=== PATIENT | female | born 1970 | race American Indian/Alaskan Native ===

== ENCOUNTER 2020-06-30 15:27 | Emergency (ER) | payer SELFPAY ==
[2020-06-30 15:35] VITALS: BP 199/107
[2020-06-30] MEDS ORDERED: methylPREDNISolone Sod Succinate 125 MG/2 ML INJ IV ONE (16:11)
--- NOTE | 2020-06-30 17:36 | Emergency Department Report ---
ED Asthma HPI - General Chief Complaint: Adult Asthma Stated Complaint: ASTHMA Time Seen by Provider: 06/30/20 16:07 Source: patient Mode of arrival: Ambulatory Limitations: No Limitations - History of Present Illness Initial Comments: Patient reports asthma attack started 3 days ago she is using her nebulizer every 4 hours for the last 3 days with no improvement. She denies fever chest pain nausea vomiting MD Complaint: "asthma attack" Onset/Timin -: days(s) (3) Asthma History: adult onset, history of prior ED visit Severity: moderate Context: none known Associated Symptoms: other (wheezing). denies: fever, chest pain, hemoptysis, leg edema, syncope Treatments Prior to Arrival: inhaled bronchodilator - Related Data Current Asthma Therapy: inhaled bronchodilator Previous Rx's Medication Instructions Recorded Last Taken Type predniSONE [Deltasone] 40 mg PO DAILY 5 Days #10 tablet 06/30/20 Unknown Rx Allergies Allergy/AdvReac Type Severity Reaction Status Date / Time Penicillins Allergy Unknown Verified 06/30/20 15:34 ED Review of Systems ROS: Stated complaint: ASTHMA Other details as noted in HPI Comment: All other systems reviewed and negative Constitutional: no symptoms reported. denies: fever, malaise Eyes: denies: eye pain, eye discharge, vision change Respiratory: no symptoms reported, wheezing Cardiovascular: denies: chest pain, palpitations, dyspnea on exertion Endocrine: no symptoms reported. denies: excessive sweating Gastrointestinal: denies: abdominal pain, nausea, diarrhea, constipation Musculoskeletal: denies: back pain Skin: denies: rash Neurological: denies: headache Psychiatric: denies: anxiety ED Past Medical Hx - Past Medical History Previous Medical History?: Yes Hx Asthma: Yes - Surgical History Past Surgical History?: No - Social History Smoking Status: Never Smoker - Medications Home Medications: Home Medications Medication Instructions Recorded Confirmed Last Taken Type predniSONE [Deltasone] 40 mg PO DAILY 5 Days #10 tablet 06/30/20 Unknown Rx ED Physical Exam - General Limitations: No Limitations General appearance: alert, in no apparent distress - Head Head exam: Present: atraumatic - Eye Eye exam: Present: normal appearance - ENT ENT exam: Present: normal exam, normal orophraynx, mucous membranes moist, TM's normal bilaterally - Neck Neck exam: Present: normal inspection. Absent: lymphadenopathy - Respiratory Respiratory exam: Present: wheezes. Absent: respiratory distress, accessory muscle use - Cardiovascular Cardiovascular Exam: Present: regular rate, normal heart sounds - Extremities Exam Extremities exam: Present: normal inspection - Neurological Exam Neurological exam: Present: alert, oriented X3 - Psychiatric Psychiatric exam: Present: normal affect - Skin Skin exam: Present: warm, dry, intact ED Course Vital Signs 06/30/20 15:34 Temperature 98.1 F Pulse Rate 79 Respiratory 18 Rate Blood Pressure 199/107 O2 Sat by Pulse 95 Oximetry - Reevaluation(s) Reevaluation #1: 06/30/20 17:38 Lungs reassessed. Patient reports improvement in breathing wheezing is mostly gone patient in no distress and states she is ready to go ED Medical Decision Making - Medical Decision Making 50-year-old female with a history of asthma. Last 3 days she has been using her home nebulizer with no improvement she denies fever chills chest pain I ordered a chest x-ray but patient refused states she does not need it she only wants that steroids and treatment. After Solu-Medrol 125 mg IV and DuoNeb x2 patient condition improved her wheezing went away and she stated she is feeling much better and ready to go home. I discussed with patient her elevated blood pressure states that because she has been having with a history problem with her asthma her blood pressure is up she denies any headache any chest pain any shortness of breath I encourage patient to continue taking all her blood pressure medicine to recheck her blood pressure at home and follow-up with her primary care doctor or return to this emergency room if she develops any severe headache chest pain weakness shortness of breath Critical Care Time: No Critical care attestation.: If time is entered above; I have spent that time in minutes in the direct care of this critically ill patient, excluding procedure time. ED Disposition Clinical Impression: Asthma attack Qualifiers: Asthma severity: moderate Asthma persistence: unspecified Qualified Code(s): J45.901 - Unspecified asthma with (acute) exacerbation Disposition: DC-01 TO HOME OR SELFCARE Is pt being admited?: No Does the pt Need Aspirin: No Condition: Stable Instructions: Asthma, Adult, Asthma Attack Prevention, Adult Additional Instructions: Contusion continue with albuterol nebulizer treatment every 4 knee hours as needed. Take prednisone 40 mg daily x5 days. Follow-up with primary care doctor in 3 to 5 days or return to the emergency room if you develop difficulty breathing fever or uncontrolled cough. Prescriptions: predniSONE [Deltasone] 40 mg PO DAILY 5 Days #10 tablet Referrals: PRIMARY CARE, [Primary Care Provider] - 3-5 Days Time of Disposition: 17:36
[2020-06-30] MEDS ORDERED: IPRATROPIUM/ALBUTEROL SULFATE 3 ML AMPUL.NEB IH SCH (20:00)
== END 2020-06-30 18:03 | disposition home or self-care (01) ==
LOC: ED 15:27
DX: J45.901 Unspecified asthma with (acute) exacerbation (principal); Z88.0 Allergy status to penicillin
CPT/HCPCS: 94644; 96374; 99282; J2930; 94640

== ENCOUNTER 2020-07-23 17:38 | Observation (INO) | payer OTHER ==
[2020-07-23] MEDS ORDERED: MAGNESIUM SULFATE 2 GM/50 ML BAG IV ONE (18:08)
[2020-07-23] MEDS ORDERED: dexAMETHasone 20 MG/5 ML VIAL IV ONE (18:08)
[2020-07-23] MEDS ORDERED: IPRATROPIUM 0.02% NEBU 2.5 ML IH ONE ×2 (18:08→21:18)
[2020-07-23] MEDS ORDERED: ALBUTEROL 2.5 MG/3 ML NEBU IH ONE ×2 (18:08→21:18)
--- NOTE | 2020-07-23 18:09 | Emergency Department Report ---
ED Asthma HPI - General Chief Complaint: Adult Asthma Stated Complaint: ASTHMA, WHEEZING, COUGH Time Seen by Provider: 07/23/20 18:08 Source: patient Mode of arrival: Ambulatory Limitations: No Limitations - History of Present Illness Initial Comments: Patient is a 50-year-old female presents emergency room with complaints of an asthma exacerbation that has been ongoing for 3 weeks but worse today. She was evaluated in the emergency department and given steroids IM and prednisone by mouth on which she states improved her symptoms some but she has continued to have symptoms. She has associated shortness of breath, wheezing, chest tightness, cough with mucus production. She states that she has had intermittent fevers. She denies any vomiting, diarrhea, sore throat, ear pain, abdominal pain. She has an allergy to penicillin. She states that she is using her neb treatments at home every 4 hours without much relief. - Related Data Previous Rx's Medication Instructions Recorded Last Taken Type predniSONE [Deltasone] 40 mg PO DAILY 5 Days #10 tablet 06/30/20 Unknown Rx Allergies Allergy/AdvReac Type Severity Reaction Status Date / Time Penicillins Allergy Unknown Verified 07/23/20 17:58 ED Review of Systems ROS: Stated complaint: ASTHMA, WHEEZING, COUGH Other details as noted in HPI Comment: All other systems reviewed and negative ED Past Medical Hx - Past Medical History Hx Asthma: Yes - Social History Smoking Status: Never Smoker - Medications Home Medications: Home Medications Medication Instructions Recorded Confirmed Last Taken Type predniSONE [Deltasone] 40 mg PO DAILY 5 Days #10 tablet 06/30/20 Unknown Rx ED Physical Exam - General Limitations: No Limitations General appearance: alert, in no apparent distress - Head Head exam: Present: atraumatic, normocephalic - Eye Eye exam: Present: normal appearance - ENT ENT exam: Present: mucous membranes moist - Respiratory Respiratory exam: Present: respiratory distress (moderate), wheezes (throughout), decreased breath sounds (throughout), prolonged expiratory. Absent: rales, rhonchi, stridor, chest wall tenderness, accessory muscle use - Cardiovascular Cardiovascular Exam: Present: regular rate, normal rhythm, normal heart sounds. Absent: systolic murmur, diastolic murmur, rubs, gallop - Neurological Exam Neurological exam: Present: alert, oriented X3 - Psychiatric Psychiatric exam: Present: normal affect, normal mood - Skin Skin exam: Present: warm, dry, intact ED Course Vital Signs 12/21/20 12/21/20 12/21/20 18:02 18:15 18:28 Temperature 98.5 F Pulse Rate 106 H Pulse Rate [ Throughout] Respiratory 24 24 Rate Respiratory 20 Rate [ Throughout] Blood Pressure 213/107 Blood Pressure [Left] O2 Sat by Pulse 95 Oximetry 07/23/20 07/23/20 07/23/20 19:55 21:14 23:21 Temperature 98.2 F Pulse Rate 96 H 93 H Pulse Rate [ 98 H Throughout] Respiratory 22 24 Rate Respiratory 20 Rate [ Throughout] Blood Pressure Blood Pressure 181/90 [Left] O2 Sat by Pulse 98 96 Oximetry 07/24/20 00:04 Temperature Pulse Rate 111 H Pulse Rate [ Throughout] Respiratory Rate Respiratory Rate [ Throughout] Blood Pressure Blood Pressure [Left] O2 Sat by Pulse 93 Oximetry - Consultations Consultation #1: 07/24/20 01:[address] Allen, hospitalist who will accept and resume care of patient, adv ised to bridge patient to [facility] with remote telemetry ED Medical Decision Making - Lab Data Result diagrams: 07/23/20 18:18 07/23/20 18:18 Lab Results 07/23/20 07/23/20 07/24/20 Range/Units 18:18 18:18 00:06 WBC 7.9 (4.5-11.0) K/mm3 RBC 4.56 (3.65-5.03) M/mm3 Hgb 12.5 (10.1-14.3) gm/dl Hct 37.8 (30.3-42.9) % MCV 83 (79-97) fl MCH 28 (28-32) pg MCHC 33 (30-34) % RDW 16.1 H (13.2-15.2) % Plt Count 223 (140-440) K/mm3 Lymph % (Auto) 28.6 (13.4-35.0) % Blount % (Auto) 4.2 (0.0-7.3) % Eos % (Auto) 5.9 H (0.0-4.3) % Baso % (Auto) 0.5 (0.0-1.8) % Lymph # (Auto) 2.3 (1.2-5.4) K/mm3 Blount # (Auto) 0.3 (0.0-0.8) K/mm3 Eos # (Auto) 0.5 H (0.0-0.4) K/mm3 Baso # (Auto) 0.0 (0.0-0.1) K/mm3 Seg Neutrophils % 60.8 (40.0-70.0) % Seg Neutrophils # 4.8 (1.8-7.7) K/mm3 Sodium 141 (137-145) mmol/L Potassium 3.4 L (3.6-5.0) mmol/L Chloride 99.4 (98-107) mmol/L Carbon Dioxide 28 (22-30) mmol/L Anion Gap 17 mmol/L BUN 12 (7-17) mg/dL Creatinine 0.7 (0.6-1.2) mg/dL Estimated GFR > 60 ml/min BUN/Creatinine Ratio 17 % Glucose 135 H (65-100) mg/dL Calcium 9.8 (8.4-10.2) mg/dL Total Bilirubin 0.20 (0.1-1.2) mg/dL AST 16 (5-40) units/L ALT 16 (7-56) units/L Alkaline Phosphatase 89 (35-129) units/L NT-Pro-B Natriuret Pep 461.3 (0-900) pg/mL Total Protein 7.6 (6.3-8.2) g/dL Albumin 4.0 (3.9-5) g/dL Albumin/Globulin Ratio 1.1 % Vital Signs 07/23/20 07/23/20 07/23/20 18:02 18:15 18:28 Temperature 98.5 F Pulse Rate 106 H Pulse Rate [ Throughout] Respiratory 24 24 Rate Respiratory 20 Rate [ Throughout] Blood Pressure 213/107 Blood Pressure [Left] O2 Sat by Pulse 95 Oximetry 07/23/20 07/23/20 07/23/20 19:55 21:14 23:21 Temperature 98.2 F Pulse Rate 96 H 93 H Pulse Rate [ 98 H Throughout] Respiratory 22 24 Rate Respiratory 20 Rate [ Throughout] Blood Pressure Blood Pressure 181/90 [Left] O2 Sat by Pulse 98 96 Oximetry 07/24/20 00:04 Temperature Pulse Rate 111 H Pulse Rate [ Throughout] Respiratory Rate Respiratory Rate [ Throughout] Blood Pressure Blood Pressure [Left] O2 Sat by Pulse 93 Oximetry - Radiology Data Radiology results: report reviewed Ordering Physician: GAVIN EVANGELISTA Date of Service: 07/23/20 Procedure(s): XR chest routine 2V Accession Number(s): [id number] cc: GAVIN EVANGELISTA Fluoro Time In Minutes: CHEST 2 VIEWS INDICATION / CLINICAL INFORMATION: sob, wheezing. COMPARISON: None available. FINDINGS: SUPPORT DEVICES: None. HEART / MEDIASTINUM: Cardiac silhouette is enlarged. LUNGS / PLEURA: Central vascular prominence and mild bilateral interstitial prominence. No pneumothorax. ADDITIONAL FINDINGS: No significant additional findings. IMPRESSION: 1. Cardiomegaly and features of mild interstitial edema. Signer Name: Danitza Jane MD Signed: 07/23/2020 9:28 PM Workstation Name: [id number] Transcribed By: SS Dictated By: DANITZA JANE Electronically Authenticated By: DANITZA JANE Signed Date/Time: 07/23/202127 DD/ 26 TD/TT: - Medical Decision Making Patient is a 50-year-old female presents emergency room with complaints of an asthma exacerbation that has been ongoing for 3 weeks but worse today. She was evaluated in the emergency department and given steroids IM and prednisone by mouth on which she states improved her symptoms some but she has continued to have symptoms. She has associated shortness of breath, wheezing, chest tightness, cough with mucus production. She states that she has had intermittent fevers. She denies any vomiting, diarrhea, sore throat, ear pain, abdominal pain. She has an allergy to penicillin. She states that she is using her neb treatments at home every 4 hours without much relief. initial vitals with tachycardia and elevated BP, BP has improved on repeat. On exam patient has moderate respiratory distress, wheezing throughout, decreased breath sounds, prolonged expiratory phase. Labs with mild hypokalemia, repleted with K-Dur. BNP is normal. Chest x-ray 1. Cardiomegaly and features of mild interstitial edema. Patient given a continuous neb treatment, magnesium, steroids. On reexamination patient continues to have significant wheezing. Patient given another neb treatment, on reexamination she continues to have wheezing. Patient ambulated in the emergency department and feels significantly short of breath and desaturates to 93% on room air. Discussed case with Dr. Jose Cruz Onofre who agrees with admission, he does not recommend Lasix at this time. Spoke to Dr. Allen, hospitalist who will accept and resume care of patient, advised to bridge patient to [facility] with remote telemetry Critical Care Time: Yes Critical care time in (mins) excluding proc time.: 35 Critical care attestation.: If time is entered above; I have spent that time in minutes in the direct care of this critically ill patient, excluding procedure time. Critical Care Time: Critical care time includes multiple reexaminations, interpretation of laboratory and diagnostic studies, consultations ED Disposition Clinical Impression: Hypokalemia Status asthmaticus Qualifiers: Asthma severity: unspecified severity Asthma persistence: unspecified Qualified Code(s): J45.902 - Unspecified asthma with status asthmaticus Disposition: DC-09 OP ADMIT IP TO THIS HOSP Is pt being admited?: Yes Does the pt Need Aspirin: No Condition: Serious Referrals: PRIMARY CARE, [Primary Care Provider] - 3-5 Days
[2020-07-23 18:42] LABS: Basophils % (Auto) 0.5 % (0.0-1.8); Eosinophils # (Auto) 0.5 K/mm3 (0.0-0.4); Eosinophils % (Auto) 5.9 % (0.0-4.3); Hematocrit 37.8 % (30.3-42.9); Hemoglobin 12.5 gm/dl (10.1-14.3); Lymphocytes # (Auto) 2.3 K/mm3 (1.2-5.4); Lymphocytes % (Auto) 28.6 % (13.4-35.0); Mean Corpuscular HGB Conc 33 % (30-34); Mean Corpuscular Volume 83 fl (79-97); Monocytes # (Auto) 0.3 K/mm3 (0.0-0.8); Monocytes % (Auto) 4.2 % (0.0-7.3); Platelet Count 223 K/mm3 (140-440); Red Blood Count 4.56 M/mm3 (3.65-5.03); Red Cell Distribution Width 16.1 % (13.2-15.2)
[2020-07-23 19:02] LABS: Alanine Aminotransferase 16 units/L (7-56); Blood Urea Nitrogen 12 mg/dL (7-17); Calcium 9.8 mg/dL (8.4-10.2); Hemolysis Index 11
[2020-07-23 19:06] LABS: BUN/Creatinine Ratio 17
--- NOTE | 2020-07-23 21:33 | XRay Report ---
CHEST 2 VIEWS INDICATION / CLINICAL INFORMATION: sob, wheezing. COMPARISON: None available. FINDINGS: SUPPORT DEVICES: None. HEART / MEDIASTINUM: Cardiac silhouette is enlarged. LUNGS / PLEURA: Central vascular prominence and mild bilateral interstitial prominence. No pneumothor ax. ADDITIONAL FINDINGS: No significant additional findings. IMPRESSION: 1. Cardiomegaly and features of mild interstitial edema. Signer Name: Sid Jane MD Signed: 07/23/2020 9:28 PM Workstation Name: [id number]
[2020-07-24] MEDS ORDERED: POTASSIUM CHLORIDE ER 20 MEQ TAB PO ONE ×2 (00:07→02:19)
[2020-07-24] MEDS ORDERED: ACETAMINOPHEN 325 MG TAB PO PRN (01:14)
[2020-07-24] MEDS ORDERED: ONDANSETRON 4 MG/2 ML INJ IV PRN ×2 (01:14→01:26)
[2020-07-24] MEDS ORDERED: MORPHINE 2 MG/1 ML INJ IV PRN (01:26)
--- NOTE | 2020-07-24 01:35 | History and Physical Report ---
History of Present Illness Date of examination: 07/24/20 Date of admission: 07/24/2020 Chief complaint: Shortness of breath History of present illness: 50-year-old female with known history of asthma presenting to the emergency room today complaining of shortness of breath which has been ongoing for about 3 weeks but got worse today. She was seen in the emergency room about a month ago when she presented with some shortness of breath and was given a course of st eroids with minimal improvement in symptoms. She has had some mild cough with minimal sputum production. She denies any fever or chills, no nausea or vomiting, no abdominal pain, no diarrhea. Denies any hematuria or dysuria. Patient denies any sick contacts and no recent travel. She denies any contact with anyone with COVID-19. Patient indicates that she has not been able to feel her blood pressure medications lately. Medications are amlodipine and hydrochlorothiazide secondary to insurance related issues. Upon arrival in the emergency room today she was slightly tachypneic, tachycardic, blood pressure systolic in the 180s and diastolic in the 90s. She was wheezing and had nebulizing treatments with some improvement. Work-up today, chest x-ray reveals cardiomegaly with some mild pulmonary congestion. Patient is being admitted for asthma exacerbation and or new onset CHF. Past History Past Medical History: hypertension, other Past Surgical History: No surgical history (Asthma) Social history: no significant social history Family history: no significant family history Medications and Allergies Allergies Allergy/AdvReac Type Severity Reaction Status Date / Time Penicillins Allergy Unknown Verified 07/23/20 17:58 Home Medications Medication Instructions Recorded Confirmed Last Taken Type predniSONE [Deltasone] 40 mg PO DAILY 5 Days #10 tablet 06/30/20 Unknown Rx Active Meds: Active Medications Acetaminophen (Acetaminophen 325 Mg Tab) 650 mg PO Q4H PRN PRN Reason: Pain MILD(1-3)/Fever >100.5/CARLOS Albuterol/Ipratropium (Ipratropium/Albuterol Sulfate 3 Ml Ampul.Neb) 1 ampul IH Q6HRT [facility] Enoxaparin Sodium (Enoxaparin 40 Mg/0.4 Ml Inj) 40 mg SUB-Q QDAY@2200 TOM; Protocol Furosemide (Furosemide 40 Mg/4 Ml Inj) 40 mg IV BID@0600,1800 TOM Methylprednisolone Sodium Succinate (Methylprednisolone Sod Succinate 40 Mg/1 Ml Inj) 40 mg IV Q8HR TOM Morphine Sulfate (Morphine 2 Mg/1 Ml Inj) 2 mg IV Q4H PRN PRN Reason: Pain, Moderate (4-6) Ondansetron HCl (Ondansetron 4 Mg/2 Ml Inj) 4 mg IV Q8H PRN PRN Reason: Nausea And Vomiting Ondansetron HCl (Ondansetron 4 Mg/2 Ml Inj) 4 mg IV Q8H PRN PRN Reason: Nausea And Vomiting Sodium Chloride (Sodium Chloride 0.9% 10 Ml Flush Syringe) 10 ml IV BID TOM Sodium Chloride (Sodium Chloride 0.9% 10 Ml Flush Syringe) 10 ml IV PRN PRN PRN Reason: LINE FLUSH Sodium Chloride (Sodium Chloride 0.9% 10 Ml Flush Syringe) 10 ml IV BID TOM Sodium Chloride (Sodium Chloride 0.9% 10 Ml Flush Syringe) 10 ml IV PRN PRN PRN Reason: LINE FLUSH Review of Systems Constitutional: no fever, no chills Ears, nose, mouth and throat: no nasal congestion, no sore throat Cardiovascular: no chest pain, no palpitations Respiratory: shortness of breath, no cough Gastrointestinal: no abdominal pain, no nausea, no vomiting, no diarrhea, no melena Genitourinary Female: no dysuria, no hematuria, no nocturia Musculoskeletal: no neck pain, no low back pain Integumentary: no rash, no pruritis Neurological: no headaches, no confusion Psychiatric: no anxiety, no depression Exam - Constitutional Vitals: Temp Pulse Resp BP Pulse Ox 98.2 F 111 H 20 181/90 93 07/23/20 21:14 07/24/20 00:04 07/23/20 23:21 07/23/20 21:14 07/24/20 00:04 General appearance: Present: no acute distress, well-nourished - EENT Eyes: Present: PERRL, EOM intact. Absent: scleral icterus ENT: hearing intact, clear oral mucosa, dentition normal - Neck Neck: Present: supple, normal ROM - Respiratory Respiratory effort: normal Respiratory: bilateral: rales (in lung bases), wheezing (few scattered wheezes) - Cardiovascular Rhythm: regular Heart Sounds: Present: S1 & S2. Absent: gallop, systolic murmur, diastolic murmur, rub - Extremities Extremities: no ischemia, pulses intact, pulses symmetrical, normal temperature, normal color, Full ROM Extremity abnormal: edema (Trace bilateral ankle edema) Peripheral Pulses: within normal limits - Abdominal General gastrointestinal: Present: soft, non-tender, non-distended, normal bowel sounds. Absent: mass - Integumentary Integumentary: Present: clear, warm, dry. Absent: rash - Musculoskeletal Musculoskeletal: strength equal bilaterally - Psychiatric Psychiatric: appropriate mood/affect, intact judgment & insight, memory intact, cooperative - Neurologic Neurologic: CNII-XII intact, no focal deficits, moves all extremities Results - Labs CBC & Chem 7: 07/23/20 18:18 12 18:18 Labs: Abnormal lab results 07/23/20 07/23/20 Range/Units 18:18 18:18 RDW 16.1 H (13.2-15.2) % Eos % (Auto) 5.9 H (0.0-4.3) % Eos # (Auto) 0.5 H (0.0-0.4) K/mm3 Potassium 3.4 L (3.6-5.0) mmol/L Glucose 135 H (65-100) mg/dL Assessment and Plan - Patient Problems (1) Status asthmaticus Current Visit: Yes Status: Acute Qualifiers: Asthma severity: unspecified severity Asthma persistence: unspecified Qualified Code(s): J45.902 - Unspecified asthma with status asthmaticus Plan to address problem: We will place patient on nebulizing treatments and IV steroid. We will keep O2 saturation greater or equal to 94%. (2) Hypokalemia Current Visit: Yes Status: Acute Plan to address problem: Potassium repleted . Will monitor chemistry closely. (3) CHF (congestive heart failure) Current Visit: Yes Status: Acute Plan to address problem: We will place patient on diuretics. Will monitor daily weights and also monitor inputs and output. We will schedule patient for echocardiogram and also request evaluation by cardiology. (4) Hypertension Current Visit: Yes Status: Acute Plan to address problem: We will resume routine home medications once are reconciled. Will monitor vital signs closely. (5) DVT prophylaxis Current Visit: Yes Status: Acute Plan to address problem: Patient placed on subcutaneous Lovenox. (6) Full code status Current Visit: Yes Status: Acute Plan to address problem: Patient is a full code.
[2020-07-24] MEDS ORDERED: hydrALAZINE 20 MG/1 ML INJ IV PRN (01:55)
[2020-07-24] MEDS: IPRATROPIUM/ALBUTEROL SULFATE 3 ML AMPUL.NEB IH SCH ×4 (02:26→19:32)
[2020-07-24] MEDS ORDERED: FUROSEMIDE 40 MG/4 ML INJ IV SCH (06:00)
[2020-07-24] MEDS: methylPREDNISolone Sod Succinate 40 MG/1 ML INJ IV SCH ×3 (08:05→23:20)
[2020-07-24] MEDS ORDERED: NON-FORMULARY EACH (Albuterol Sulfate [Albuterol 0.63% Nebs] 0.63 MG/3 ML Vial.Neb) IH SCH (09:30)
[2020-07-24] MEDS ORDERED: hydroCHLOROthiazide 25 MG TAB PO SCH (10:00)
--- NOTE | 2020-07-24 10:05 | Consultation ---
History of Present Illness Consult date: 07/24/20 Requesting physician: BONITA TELLO Consult reason: congestive heart failure History of present illness: The pt is a 50-year-old female with a past medial history of asthma, HTN, obesity. She presented with c/o progressively worsening SOB and wheezing since , with worsening of symptoms yesterday. She was seen in the emergency room about a month ago for evaluation of shortness of breath and was given a course of steroids with minimal improvement in symptoms. She has had some mild cough with minimal sputum production. She denies any chest pain, palpitations, n/v, diaphoresis, dizziness or syncope. She states she underwent COVID-19 testing approx 3 weeks ago which was negative. Patient indicates that she has not been able to feel her blood pressure medications lately secondary to insurance related issues. Her home medications includeamlodipine and hydrochlorothiazide. Admission BP 213/107. Past History Past Medical History: hypertension, other Past Surgical History: No surgical history (Asthma) Social history: no significant social history Family history: no significant family history Medications and Allergies Allergies Allergy/AdvReac Type Severity Reaction Status Date / Time Penicillins Allergy Unknown Verified 07/23/20 17:58 Home Medications Medication Instructions Recorded Confirmed Last Taken Type Albuterol Sulfate [Albuterol 0.63% 0.63 mg IH Q4H 07/24/20 07/24/20 Unknown History NEBS] amLODIPine [Norvasc] 10 mg PO DAILY 07/24/20 07/24/20 Unknown History hydroCHLOROthiazide [HCTZ] 25 mg PO QDAY 07/24/20 07/24/20 Unknown History Active Meds: Active Medications Acetaminophen (Acetaminophen 325 Mg Tab) 650 mg PO Q4H PRN PRN Reason: Pain MILD(1-3)/Fever >100.5/CARLOS Albuterol/Ipratropium (Ipratropium/Albuterol Sulfate 3 Ml Ampul.Neb) 1 ampul IH Q6HRT COUNT INCLUDES THE [facility] Last Admin: 07/24/20 09:54 Dose: 1 ampul Documented by: Amlodipine Besylate (Amlodipine 10 Mg Tab) 10 mg PO DAILY COUNT INCLUDES THE [facility] Enoxaparin Sodium (Enoxaparin 40 Mg/0.4 Ml Inj) 40 mg SUB-Q QDAY@2200 COUNT INCLUDES THE [facility]; Protocol Furosemide (Furosemide 40 Mg/4 Ml Inj) 40 mg IV BID@0600,1800 COUNT INCLUDES THE [facility] Last Admin: 07/24/20 08:05 Dose: 40 mg Documented by: Hydralazine HCl (Hydralazine 20 Mg/1 Ml Inj) 10 mg IV Q6HR PRN PRN Reason: Blood Pressure Methylprednisolone Sodium Succinate (Methylprednisolone Sod Succinate 40 Mg/1 Ml Inj) 40 mg IV Q8HR COUNT INCLUDES THE [facility] Last Admin: 07/24/20 08:05 Dose: 40 mg Documented by: Miscellaneous Medication (Albuterol Sulfate [Albuterol 0.63% Nebs]) 0.63 mg IH Q4H COUNT INCLUDES THE [facility] Morphine Sulfate (Morphine 2 Mg/1 Ml Inj) 2 mg IV Q4H PRN PRN Reason: Pain, Moderate (4-6) Ondansetron HCl (Ondansetron 4 Mg/2 Ml Inj) 4 mg IV Q8H PRN PRN Reason: Nausea And Vomiting Potassium Chloride (Potassium Chloride Er 10 Meq Tab) 10 meq PO QDAY COUNT INCLUDES THE [facility] Sodium Chloride (Sodium Chloride 0.9% 10 Ml Flush Syringe) 10 ml IV BID COUNT INCLUDES THE [facility] Sodium Chloride (Sodium Chloride 0.9% 10 Ml Flush Syringe) 10 ml IV PRN PRN PRN Reason: LINE FLUSH Review of Systems Constitutional: no weight loss, no weight gain, no fever, no chills, no sweats Ears, nose, mouth and throat: no ear pain, no nose pain, no sinus pressure, no sinus pain Cardiovascular: shortness of breath, dyspnea on exertion, high blood pressure, leg edema, no chest pain, no orthopnea, no palpitations, no rapid/irregular heart beat, no edema, no syncope, no lightheadedness Respiratory: cough, shortness of breath, dyspnea on exertion, wheezing, no congestion, no pain on inspiration Gastrointestinal: no abdominal pain, no nausea, no vomiting, no diarrhea, no constipation, no change in bowel habits Genitourinary Female: no pelvic pain, no flank pain, no dysuria, no urinary frequency, no urgency Musculoskeletal: no neck stiffness, no neck pain, no shooting arm pain, no arm numbness/tingling, no low back pain, no shooting leg pain Integumentary: no rash, no pruritis, no redness, no sores, no wounds Neurological: no head injury, no paralysis, no weakness, no parathesias, no numbness, no tingling, no seizures, no syncope Psychiatric: no anxiety Endocrine: no cold intolerance, no heat intolerance Hematologic/Lymphatic: no easy bruising Allergic/Immunologic: no urticaria Physical Examination Vital Signs Temp Pulse Resp BP Pulse Ox 98.5 F 106 H 24 213/107 95 07/23/20 18:02 07/23/20 18:02 07/23/20 18:02 07/23/20 18:02 07/23/20 18:02 General appearance: other (SOB, wheezing) HEENT: Positive: PERRL, Normocephaly, Mucus Membranes Moist Neck: Positive: neck supple, trachea midline Cardiac: Positive: Reg Rate and Rhythm, S1/S2 Lungs: Positive: Decreased Breath Sounds, Wheezes, Oxygen Neuro: Positive: Grossly Intact Abdomen: Negative: Tender Skin: Negative: Rash Musculoskeletal: No Pain Extremities: Present: edema (trace BLE) Results 07/23/20 18:18 07/23/20 18:18 Cardiac Enzymes 07/23/20 Range/Units 18:18 AST 16 (5-40) units/L CBC 07/23/20 Range/Units 18:18 WBC 7.9 (4.5-11.0) K/mm3 RBC 4.56 (3.65-5.03) M/mm3 Hgb 12.5 (10.1-14.3) gm/dl Hct 37.8 (30.3-42.9) % Plt Count 223 (140-440) K/mm3 Lymph # (Auto) 2.3 (1.2-5.4) K/mm3 [place] # (Auto) 0.3 (0.0-0.8) K/mm3 Eos # (Auto) 0.5 H (0.0-0.4) K/mm3 Baso # (Auto) 0.0 (0.0-0.1) K/mm3 Comprehensive Metabolic Panel 07/23/20 Range/Units 18:18 Sodium 141 (137-145) mmol/L Potassium 3.4 L (3.6-5.0) mmol/L Chloride 99.4 (98-107) mmol/L Carbon Dioxide 28 (22-30) mmol/L BUN 12 (7-17) mg/dL Creatinine 0.7 (0.6-1.2) mg/dL Glucose 135 H (65-100) mg/dL Calcium 9.8 (8.4-10.2) mg/dL AST 16 (5-40) units/L ALT 16 (7-56) units/L Alkaline Phosphatase 89 (35-129) units/L Total Protein 7.6 (6.3-8.2) g/dL Albumin 4.0 (3.9-5) g/dL - Imaging and Cardiology Echo: pending EKG: pending EKG interpretations - Telemetry EKG Rhythm: Sinus Rhythm Assessment and Plan Cardiology has been consulted for HF, although the primary issue appears to be asthma with acute exacerbation. Recommend pulmonary consultation per primary team. Initiate gentle diuresis in setting of trace BLE edema and optimize anti- hypertensive regimen. Obtain echo. Will follow. The patient has been seen in conjunction with Dr. Duran who agrees with the assessment and plan of care. - Patient Problems (1) Acute asthma exacerbation Current Visit: Yes Status: Acute (2) Uncontrolled hypertension Current Visit: Yes Status: Chronic (3) Obesity Current Visit: Yes Status: Chronic
[2020-07-24] MEDS ORDERED: POTASSIUM CHLORIDE ER 10 MEQ TAB PO SCH (11:00)
[2020-07-24] MEDS ORDERED: ALBUTEROL 2.5 MG/3 ML NEBU IH PRN (12:00)
[2020-07-24] MEDS: amLODIPine 10 MG TAB PO SCH (13:40)
[2020-07-24] MEDS: hydrALAZINE 25 MG TAB PO SCH ×2 (15:31→23:16)
--- NOTE | 2020-07-24 15:31 | Progress Note ---
Assessment and Plan - Patient Problems (1) Person under investigation for COVID-19 Current Visit: Yes Status: Acute Plan to address problem: 07/23 CXR shows mild interstitial edema Patient presented with shortness of breath and coughing Patient states that she was tested negative for COVID-19 last month 07/24 COVID-19 PCR pending Isolation/droplet precautions Trend Covid inflammatory markers Anticoagulation per protocol Infectious disease consult if COVID-19 PCR positive Pulmonary hygiene Supplemental oxygen as needed OOB 3 times daily Prone to sleep as needed (2) Acute asthma exacerbation Current Visit: Yes Status: Acute Plan to address problem: Patient remains in room air Initiated on IV steroid therapy and nebulizing treatments Continuous SPO2 monitoring Pulmonary hygiene Supplemental oxygenation as needed Follow-up with facilities specialist upon discharge (3) Elevated d-dimer Current Visit: Yes Status: Acute Plan to address problem: Presented with a D-dimer of 1350 07/24 CTA chest pending 07/24 bilateral upper extremity duplex ultrasound pending (4) Hypertension Current Visit: Yes Status: Chronic Plan to address problem: Presented with hypertensive emergency BP 213/107 Cardiology consulted Amlodipine, hydralazine, Lasix Blood pressure monitoring per protocol Hydralazine as needed for SBP greater than 160 (5) Obesity Current Visit: Yes Status: Chronic Qualifiers: Obesity type: due to excess calories Body mass index: BMI 40.0-44.9 Plan to address problem: Dietary modifications and increasing physical activity strongly encouraged Nutrition consult for dietary education Consider bariatric surgery out patient if desired (6) CHF (congestive heart failure) Current Visit: Yes Status: Acute Plan to address problem: Presented with a BNP of 461 Cardiology consulted 07/24 echo pending Cardiology initiated gentle diuresis Amlodipine, hydralazine, Lasix (7) Hypokalemia Current Visit: Yes Status: Acute Plan to address problem: Presented with this potassium 3.4 Repleted Trend BMP Intervene as necessary (8) DVT prophylaxis Current Visit: Yes Status: Acute Plan to address problem: Lovenox subcu SCDs to bilateral lower extremities while in bed History Interval history: This is a 50-year-old female with asthma, hypertension, obesity and noncompliance who presents to the emergency department on 07/24 complaining of progressive shortness of breath for about 3 weeks with a mild cough with minimal sputum production. Upon arrival to the emergency department patient was slightly tachypneic, tachycardic and hypertensive with a blood pressure of 213/107. Her chest x-ray revealed cardiomegaly with mild pulmonary congestion and the patient was initiated on steroid therapy. Cardiology was consulted for new onset acute CHF and she was admitted for an asthma exacerbation. This morning cardiology was consulted for COVID-19 exposure therefore requested a COVID-19 PCR to be sent. Patient was placed on droplet/contact precautions, Covid inflammatory markers were ordered. The time of my examination patient is on room air and has bilateral wheezes however patient states that she is symptomatically much better. Patient also received an echocardiogram today. This afternoon her D-dimer was elevated at 1350 and bilateral upper extremity duplex ultrasound and CTA chest was ordered. Hospitalist Physical - Constitutional Vitals: Temp Pulse Resp BP Pulse Ox 97.9 F 88 18 179/98 94 07/24/20 10:39 07/24/20 14:36 07/24/20 14:36 07/24/20 13:40 07/24/20 10:39 General appearance: Present: mild distress, obese, other - EENT Eyes: Present: EOM intact ENT: hearing intact, clear oral mucosa - Neck Neck: Present: normal ROM - Respiratory Respiratory effort: normal Respiratory: bilateral: wheezing - Cardiovascular Rhythm: regular Heart Sounds: Present: S1 & S2. Absent: systolic murmur, diastolic murmur - Extremities Extremities: no ischemia, pulses intact, pulses symmetrical, No edema, normal temperature, normal color, Full ROM Peripheral Pulses: within normal limits - Abdominal General gastrointestinal: soft, non-tender, non-distended, normal bowel sounds - Integumentary Integumentary: Present: warm, dry - Psychiatric Psychiatric: appropriate mood/affect, cooperative - Neurologic Neurologic: CNII-XII intact, no focal deficits, moves all extremities Results - Labs CBC & Chem 7: 07/23/20 18:18 07/24/20 14:48 Labs: Laboratory Last Values WBC 7.9 K/mm3 (4.5-11.0) 07/23/20 18:18 RBC 4.56 M/mm3 (3.65-5.03) 07/23/20 18:18 Hgb 12.5 gm/dl (10.1-14.3) 07/23/20 18:18 Hct 37.8 % (30.3-42.9) 07/23/20 18:18 MCV 83 fl (79-97) 07/23/20 18:18 MCH 28 pg (28-32) 07/23/20 18:18 MCHC 33 % (30-34) 07/23/20 18:18 RDW 16.1 % (13.2-15.2) H 07/23/20 18:18 Plt Count 223 K/mm3 (140-440) 07/23/20 18:18 Lymph % (Auto) 28.6 % (13.4-35.0) 07/23/20 18:18 [place] % (Auto) 4.2 % (0.0-7.3) 07/23/20 18:18 Eos % (Auto) 5.9 % (0.0-4.3) H 07/23/20 18:18 Baso % (Auto) 0.5 % (0.0-1.8) 07/23/20 18:18 Lymph # (Auto) 2.3 K/mm3 (1.2-5.4) 07/23/20 18:18 [place] # (Auto) 0.3 K/mm3 (0.0-0.8) 07/23/20 18:18 Eos # (Auto) 0.5 K/mm3 (0.0-0.4) H 07/23/20 18:18 Baso # (Auto) 0.0 K/mm3 (0.0-0.1) 07/23/20 18:18 Seg Neutrophils % 60.8 % (40.0-70.0) 07/23/20 18:18 Seg Neutrophils # 4.8 K/mm3 (1.8-7.7) 07/23/20 18:18 Sodium 141 mmol/L (137-145) 07/23/20 18:18 Potassium 3.4 mmol/L (3.6-5.0) L 07/23/20 18:18 Chloride 99.4 mmol/L (98-107) 07/23/20 18:18 Carbon Dioxide 28 mmol/L (22-30) 07/23/20 18:18 Anion Gap 17 mmol/L 07/23/20 18:18 BUN 12 mg/dL (7-17) 07/23/20 18:18 Creatinine 0.7 mg/dL (0.6-1.2) 12/21/20 18:18 Estimated GFR > 60 ml/min 07/23/20 18:18 BUN/Creatinine Ratio 17 % 07/23/20 18:18 Glucose 135 mg/dL (65-100) H 07/23/20 18:18 Calcium 9.8 mg/dL (8.4-10.2) 07/23/20 18:18 Total Bilirubin 0.20 mg/dL (0.1-1.2) 07/23/20 18:18 AST 16 units/L (5-40) 07/23/20 18:18 ALT 16 units/L (7-56) 07/23/20 18:18 Alkaline Phosphatase 89 units/L (35-129) 07/23/20 18:18 NT-Pro-B Natriuret Pep 461.3 pg/mL (0-900) 07/24/20 00:06 Total Protein 7.6 g/dL (6.3-8.2) 07/23/20 18:18 Albumin 4.0 g/dL (3.9-5) 07/23/20 18:18 Albumin/Globulin Ratio 1.1 % 07/23/20 18:18 Flood/IV: IV Catheter Type [Right INT / Saline Lock Antecubital] Active Medications - Current Medications Current Medications: Generic Name Dose Route Start Last Admin Trade Name Freq PRN Reason Stop Dose Admin Acetaminophen 650 mg 07/24/20 01:14 Acetaminophen 325 Mg Tab PO Q4H PRN Pain MILD(1-3)/Fever >100.5/CARLOS Albuterol 2.5 mg 07/24/20 12:00 Albuterol 2.5 Mg/3 Ml Nebu IH Q4HRT PRN Shortness Of Breath Albuterol/Ipratropium 1 ampul 07/24/20 02:00 07/24/20 14:36 Ipratropium/Albuterol Sulfate 3 Ml Ampul.Neb IH 1 ampul Q6HRT TOM Administration Amlodipine Besylate 10 mg 07/24/20 11:00 07/24/20 13:40 Amlodipine 10 Mg Tab PO 10 mg DAILY TOM Administration Enoxaparin Sodium 40 mg 07/24/20 22:00 Enoxaparin 40 Mg/0.4 Ml Inj SUB-Q QDAY@2200 [facility] Protocol Furosemide 40 mg 07/25/20 10:00 Furosemide 40 Mg/4 Ml Inj IV DAILY TOM Hydralazine HCl 10 mg 07/24/20 01:55 Hydralazine 20 Mg/1 Ml Inj IV Q6HR PRN Blood Pressure Hydralazine HCl 25 mg 07/24/20 14:00 Hydralazine 25 Mg Tab PO Q8HR TOM Methylprednisolone Sodium Succinate 40 mg 07/24/20 06:00 07/24/20 08:05 Methylprednisolone Sod Succinate 40 Mg/1 Ml Inj IV 40 mg Q8HR TOM Administration Morphine Sulfate 2 mg 07/24/20 01:26 Morphine 2 Mg/1 Ml Inj IV Q4H PRN Pain, Moderate (4-6) Ondansetron HCl 4 mg 07/24/20 01:26 Ondansetron 4 Mg/2 Ml Inj IV Q8H PRN Nausea And Vomiting Potassium Chloride 10 meq 07/24/20 11:00 07/24/20 13:41 Potassium Chloride Er 10 Meq Tab PO 10 meq QDAY TOM Administration Sodium Chloride 10 ml 07/24/20 10:00 07/24/20 10:10 Sodium Chloride 0.9% 10 Ml Flush Syringe IV 10 ml BID TOM Administration Sodium Chloride 10 ml 07/24/20 01:26 Sodium Chloride 0.9% 10 Ml Flush Syringe IV PRN PRN LINE FLUSH
[2020-07-24 15:57] LABS: C-Reactive Protein 3.2 mg/dL (0.00-1.30)
--- NOTE | 2020-07-24 16:40 | Cat Scan Report ---
CTA CHEST WITH CONTRAST INDICATION / CLINICAL INFORMATION: r/o pe. TECHNIQUE: Axial CT images were obtained through the chest after injection of IV contrast. 3 plane SC P and/or 3D reconstructions were produced. All CT scans at this location are performed using CT dose reduction for ALARA by means of automated exposure control. COMPARISON: None available. FINDINGS: PULMONARY ARTERIES: Evaluation for pulmonary embolus is limited due to suboptimal contrast bolus ruddy ng. There is no central or large segmental pulmonary embolus identified. THORACIC AORTA: No significant abnormality. HEART: There is cardiac enlargement without pericardial effusion. ADENOPATHY: No significant adenopathy. LUNGS/PLEURA: Scattered linear opacities are present throughout the lungs, most pronounced in the [place] gula and right middle lobe, most compatible with atelectasis. Mild interlobular septal thickening. No focal airspace consolidation. There is no pleural effusion or pneumothorax. ADDITIONAL FINDINGS: Small hiatal hernia. UPPER ABDOMEN: No acute findings. SKELETAL STRUCTURES: No significant osseous abnormality. IMPRESSION: 1. Suboptimal contrast bolus timing limits evaluation for pulmonary embolus. There is no evidence of central or large segmental pulmonary embolus. 2. Cardiomegaly with mild interlobular septal thickening, which may reflect mild interstitial edema i n the setting of CHF. 3. Otherwise, no acute chest process. Signer Name: Hemal Denny MD Signed: 07/24/2020 4:36 PM Workstation Name: [id number]
--- NOTE | 2020-07-24 17:05 | Vascular Lab Report ---
DUPLEX DOPPLER LOWER EXTREMITY VEINS, BILATERAL INDICATION / CLINICAL INFORMATION: r/o dvt. TECHNIQUE: Duplex doppler imaging was performed through the veins of both lower extremities using venous alexey corona and other maneuvers. COMPARISON: None available. FINDINGS: RIGHT COMMON FEMORAL VEIN: Negative. RIGHT FEMORAL VEIN: Negative. RIGHT POPLITEAL VEIN: Negative. RIGHT CALF VEINS: Negative. LEFT COMMON FEMORAL VEIN: Negative. LEFT FEMORAL VEIN: Negative. LEFT POPLITEAL VEIN: Negative. LEFT CALF VEINS: Negative. ADDITIONAL FINDINGS: None. IMPRESSION: 1. No sonographic evidence for DVT in either lower extremity. Signer Name: Bulmaro Farmer MD Signed: 07/24/2020 5:00 PM Workstation Name: [id number]
[2020-07-24] MEDS: ENOXAPARIN 40 MG/0.4 ML INJ SUB-Q SCH (23:22)
[2020-07-25] MEDS: IPRATROPIUM/ALBUTEROL SULFATE 3 ML AMPUL.NEB IH SCH ×4 (02:41→21:02)
[2020-07-25 05:19] LABS: Basophils % (Auto) 0.4 % (0.0-1.8); Hematocrit 37.6 % (30.3-42.9); Hemoglobin 12.3 gm/dl (10.1-14.3); Lymphocytes # (Auto) 1.1 K/mm3 (1.2-5.4); Mean Corpuscular HGB Conc 33 % (30-34); Mean Corpuscular Volume 83 fl (79-97); Monocytes # (Auto) 0.2 K/mm3 (0.0-0.8); Monocytes % (Auto) 1.2 % (0.0-7.3); Platelet Count 201 K/mm3 (140-440); Red Blood Count 4.56 M/mm3 (3.65-5.03); Red Cell Distribution Width 15.6 % (13.2-15.2)
[2020-07-25 05:24] LABS: Blood Urea Nitrogen 18 mg/dL (7-17); Calcium 9.7 mg/dL (8.4-10.2); Hemolysis Index 27
[2020-07-25 05:31] LABS: INR 1.07 (0.87-1.13)
[2020-07-25 05:54] LABS: BUN/Creatinine Ratio 26
[2020-07-25] MEDS: hydrALAZINE 25 MG TAB PO SCH ×3 (06:04→23:02)
[2020-07-25] MEDS: methylPREDNISolone Sod Succinate 40 MG/1 ML INJ IV SCH ×2 (06:10→23:01)
[2020-07-25] MEDS: amLODIPine 10 MG TAB PO SCH (09:57)
[2020-07-25] MEDS ORDERED: FUROSEMIDE 40 MG/4 ML INJ IV SCH (10:00)
[2020-07-25] MEDS ORDERED: hydroCHLOROthiazide 25 MG TAB PO SCH (10:00)
--- NOTE | 2020-07-25 10:00 | Progress Note ---
Assessment and Plan tte reviewed - EF 55-60%, mild LVH, impaired relaxation, mild TR, RVSP 36mmHg. No apparent clinical evidence of acute heart failure. Optimize anti-hypertensive regimen - d/c lasix, initiate HCTZ, increase hydralazine, cont norvasc. Currently stable cardiac status. Pt may discharge from cardiology standpoint. Recommend pt follow up in our office with Dr. Duran within 2 weeks ([phone]). Pt verbalizes understanding. The patient has been seen in conjunction with Dr. Duran who agrees with the assessment and plan of care. - Patient Problems (1) Acute asthma exacerbation Current Visit: Yes Status: Acute (2) Uncontrolled hypertension Current Visit: Yes Status: Chronic (3) Obesity Current Visit: Yes Status: Chronic Qualifiers: Obesity type: due to excess calories Body mass index: BMI 40.0-44.9 Subjective Date of service: 07/25/20 Principal diagnosis: asthma Interval history: pt resting in bed, feeling better. in SR. Objective Last Vital Signs Temp 97.9 F 07/24/20 10:39 Pulse 88 07/25/20 08:41 Resp 18 07/25/20 08:41 BP 175/88 07/25/20 06:14 Pulse Ox 97 07/25/20 06:14 - Physical Examination General: No Apparent Distress HEENT: Positive: PERRL, Normocephaly, Mucus Membranes Moist Neck: Positive: neck supple, trachea midline Cardiac: Positive: Reg Rate and Rhythm, S1/S2 Lungs: Positive: Decreased Breath Sounds Neuro: Positive: Grossly Intact Abdomen: Negative: Tender Skin: Negative: Rash Musculoskeletal: No Pain Extremities: Present: edema (trace BLE) - Labs and Meds Cardiac Enzymes 07/24/20 Range/Units 14:48 Lactate Dehydrogenase 308 H (91-180) units/L Coagulation 07/25/20 Range/Units 04:49 PT 13.7 (12.2-14.9) Sec. INR 1.07 (0.87-1.13) CBC 07/25/20 Range/Units 04:49 WBC 12.4 H (4.5-11.0) K/mm3 RBC 4.56 (3.65-5.03) M/mm3 Hgb 12.3 (10.1-14.3) gm/dl Hct 37.6 (30.3-42.9) % Plt Count 201 (140-440) K/mm3 Lymph # (Auto) 1.1 L (1.2-5.4) K/mm3 [place] # (Auto) 0.2 (0.0-0.8) K/mm3 Eos # (Auto) 0.0 (0.0-0.4) K/mm3 Baso # (Auto) 0.0 (0.0-0.1) K/mm3 Comprehensive Metabolic Panel 07/24/20 07/25/20 Range/Units 14:48 04:49 Sodium 139 (137-145) mmol/L Potassium 4.4 D (3.6-5.0) mmol/L Chloride 99.5 (98-107) mmol/L Carbon Dioxide 28 (22-30) mmol/L BUN 18 H (7-17) mg/dL Creatinine 0.7 (0.6-1.2) mg/dL Glucose 222 H 205 H (65-100) mg/dL Calcium 9.7 (8.4-10.2) mg/dL - Imaging and Cardiology EKG: pending Echo: pending
--- NOTE | 2020-07-25 18:37 | Discharge Summary ---
Providers - Providers Date of Admission: 07/24/20 01:14 Date of discharge: 07/25/20 Attending physician: ILEANA ZHOU 07/24/20 01:26 Consult to Physician [CONS] Routine Comment: Consulting Provider: DEBRA KOHLER Physician Instructions: Reason For Exam: CHF- New onset Primary care physician: SERVICE DEVELOPER Hospitalization Condition: Serious Hospital course: 50-year-old female with known history of asthma presenting to the emergency room today complaining of shortness of breath which has been ongoing for about 3 weeks but got worse today. She was seen in the emergency room about a month ago when she presented with some shortness of breath and was given a course of steroids with minimal improvement in symptoms. She has had some mild cough with minimal sputum production. She denies any fever or chills, no nausea or vomiting, no abdominal pain, no diarrhea. Denies any hematuria or dysuria. Patient denies any sick contacts and no recent travel. She denies any contact with anyone with COVID-19. Patient indicates that she has not been able to feel her blood pressure medications lately. Medications are amlodipine and hydrochlorothiazide secondary to insurance related issues. Upon arrival in the emergency room today she was slightly tachypneic, tachycardic, blood pressure systolic in the 180s and diastolic in the 90s. She was wheezing and had nebulizing treatments with some improvement. Work-up today, chest x-ray reveals cardiomegaly with some mild pulmonary congestion. Patient is being admitted for asthma exacerbation and or new onset CHF. Patient had echocardiogram which shows normal ejection fraction. Patient has wheezing improved (1) Person under investigation for COVID-19 Current Visit: Yes Status: Acute Plan to address problem: 07/23 CXR shows mild interstitial edema Patient presented with shortness of breath and coughing Patient states that she was tested negative for COVID-19 last month 07/24 COVID-19 PCR pending Isolation/droplet precautions Trend Covid inflammatory markers Anticoagulation per protocol Infectious disease consult if COVID-19 PCR positive Pulmonary hygiene Supplemental oxygen as needed OOB 3 times daily Prone to sleep as needed (2) Acute asthma exacerbation Current Visit: Yes Status: Acute Plan to address problem: Improved (3) Elevated d-dimer Current Visit: Yes Status: Acute Plan to address problem: CTA chest is negative (4) Hypertension Current Visit: Yes Status: Chronic Plan to address problem: Controlled (5) Obesity Current Visit: Yes Status: Chronic Qualifiers: Obesity type: due to excess calories Body mass index: BMI 40.0-44.9 Plan to address problem: Patient was suggested: [facility] bariatric surgery department (6) CHF (congestive heart failure) Current Visit: Yes Status: Acute Plan to address problem: EF is normald with this potassium 3.4 Repleted Trend BMP Intervene as necessary Presented (7) Hypokalemia Hypokalemia corrected Disposition: DC-01 TO HOME OR SELFCARE Time spent for discharge: 32 min - Discharge Diagnoses (1) Acute asthma exacerbation Status: Acute (2) Elevated d-dimer Status: Acute (3) Status asthmaticus Status: Acute Qualifiers: Asthma severity: unspecified severity Asthma persistence: unspecified Qualified Code(s): J45.902 - Unspecified asthma with status asthmaticus Core Measure Documentation - Palliative Care Palliative Care/ Comfort Measures: Not Applicable - Core Measures Any of the following diagnoses?: none Exam - Constitutional Vitals: Temp Pulse Resp BP Pulse Ox 98.4 F 82 20 172/84 97 07/25/20 13:25 07/25/20 16:01 07/25/20 16:01 07/25/20 13:25 07/25/20 13:25 General appearance: Present: no acute distress, well-nourished - EENT Eyes: Present: PERRL ENT: hearing intact, clear oral mucosa - Neck Neck: Present: supple, normal ROM - Respiratory Respiratory effort: normal Respiratory: bilateral: CTA - Cardiovascular Heart rate: 78 Rhythm: regular Heart Sounds: Present: S1 & S2. Absent: rub, click - Extremities Extremities: pulses symmetrical, No edema Peripheral Pulses: within normal limits - Abdominal General gastrointestinal: Present: soft, non-tender, non-distended, normal bowel sounds Female genitourinary: Present: normal - Integumentary Integumentary: Present: clear, warm, dry - Musculoskeletal Musculoskeletal: gait normal, strength equal bilaterally - Psychiatric Psychiatric: appropriate mood/affect, intact judgment & insight - Neurologic Neurologic: CNII-XII intact, moves all extremities Plan Activity: no restrictions Diet: low salt Follow up with: PRIMARY CARE, [Primary Care Provider] - 3-5 Days
[2020-07-25] MEDS: ENOXAPARIN 40 MG/0.4 ML INJ SUB-Q SCH (23:01)
[2020-07-25 23:03] VITALS: BP 142/77
== END 2020-07-26 00:05 | disposition home or self-care (01) ==
LOC: ED 17:38 → 3A 07-24 01:14
PROVIDERS: ADMIT Internal Medicine Geriatric Medicine; ATTEND Internal Medicine
DX: J45.902 Unspecified asthma with status asthmaticus (principal); Z20.828 Contact with and (suspected) exposure to other viral communicable diseases; I11.0 Hypertensive heart disease with heart failure; I50.9 Heart failure, unspecified; E87.6 Hypokalemia; E66.9 Obesity, unspecified; R74.8 Abnormal levels of other serum enzymes; Z98.890 Other specified postprocedural states; Z68.41 Body mass index [BMI] 40.0-44.9, adult
CPT/HCPCS: 36415; 71046; 71275; 80048; 80053; 82728; 82947; 83615; 83880; 84145; 85025; 85379; 85610; 86140; 93306; 93970; 94640; 94644; 96365; 96372; 96375; 96376; 99291; G0378; J0360; J1100; J1650; J1940; J2920; J3475; Q9967; U0003